=== PATIENT | female | born 1935 ===

== ENCOUNTER 2017-07-06 05:38 | Day surgery (SDC) | payer OTHER | END 2017-07-06 10:35 | disposition home or self-care (01) | LOC: AMB-ENDOS 05:38 | DX: K57.32 Diverticulitis of large intestine without perforation or abscess without bleeding (principal); K64.1 Second degree hemorrhoids; I10 Essential (primary) hypertension; E78.4 Other hyperlipidemia; Z85.3 Personal history of malignant neoplasm of breast; Z90.5 Acquired absence of kidney; Z93.3 Colostomy status; R73.01 Impaired fasting glucose ==